=== PATIENT | female | born 1960 | race Two or more races ===

== ENCOUNTER 2025-05-24 16:30 | Inpatient (IN) | payer MEDICAID ==
[~2025-05-24] VITALS: Ht 157.5 cm; Wt 61.4 kg
--- NOTE | 2025-05-24 17:04 | ED.PDOC ---
GI ASSESSMENT HPI Comments 64 y/o F, with PMHx of DM and HTN presents to the ED for CC of nausea. Patient states, she has been experiencing symptoms of nausea with associated dizziness [id number]. Patient reports, dizziness to worsen while lying down and bending done. Patient denies vomiting, diarrhea, abdominal pain, ear pain, or ear-ringing. Vital signs were stable at arrival. Chief Complaint: Nausea/Vomiting Time Seen by MD: 16:50 Reviewed Notes: Nurses Notes, Medications, Allergies Allergies: Coded Allergies: NO KNOWN ALLERGIES (Unverified , 05/24/25) Information Source: Patient Mode of Arrival: Ambulatory Timing: Weeks Duration: Since onset Prehospital treatment: None Vomitus: None Stool: Normal Severity: Moderate Recent: None Recent Hx of: None Pain Location: None Modifying Factors: Nothing Associated sign and symptoms: Nausea, Vomiting Past Medical History PAST MEDICAL HISTORY: DM, HTN Surgical History: Denies all surgeries LAMP [employer] History: Denies all LAMP SH[employer]ER Hx Family History Family History: Unknown Social History Smoker: Non-Smoker Alcohol: Denies ETOH Use Drugs: Denies Drug Use Lives In: Home Constitutional: denies: chills, diaphoresis, fatigue, fever, malaise, sweats, weakness, others EENTM: denies: blurred vision, double vision, ear bleeding, ear discharge, ear drainage, ear pain, ear ringing, eye pain, eye redness, hearing loss, mouth pain, mouth swelling, nasal discharge, nose bleeding, nose congestion, nose pain, photophobia, tearing, throat pain, throat swelling, voice changes, others Respiratory: denies: cough, hemoptysis, orthopnea, SOB at rest, shortness of breath, SOB with excertion, stridor, wheezing, others Cardiovascular: denies: chest pain, dizzy spells, diaphoresis, Dyspnea on exertion, edema, irregular heart beat, left arm pain, lightheadedness, palpitations, PND, syncope, others Gastrointestinal: reports: nausea, vomiting; denies: abdomen distended, abdominal pain, blood streaked bowels, constipated, diarrhea, dysphagia, difficulty swallowing, hematemesis, melena, poor appetite, poor fluid intake, rectal bleeding, rectal pain, others Genitourinary: denies: abnormal vagina bleeding, burning, dyspareunia, dysuria, flank pain, frequency, hematuria, incontinence, pain, , vagina discharge, urgency, others Neurological: reports: dizziness; denies: fainting, headache, left sided numbness, left sided weakness, numbness, paresthesia, pre-existing deficit, right sided numbness, right sided weakness, seizure, speech problems, tingling, tremors, weakness, others Musculoskeletal: denies: back pain, gout, joint pain, joint swelling, muscle pain, muscle stiffness, neck pain, others Integumetry: denies: bruises, change in color, change in hair/nails, dryness, laceration, lesions, lumps, rash, wounds, others Allergic/Immunocompromised: denies: Difficulty Healing, Frequent Infections, Hives, Itching, others Hematologic/Lymphatic: denies: anemia, blood clots, easy bleeding, easy bruising, swollen glands, others Endocrine: denies: excessive hunger, excessive sweating, excessive thirst, excessive urination, flushing, intolerance to cold, intolerance to heat, unexplained weight gain, unexplained weight loss, others Psychiatric: denies: anxiety, bipolar disorder, depression, hopeless, panic disorder, schizophrenia, sleepless, suicidal, others All Other Systems: Reviewed and Negative Physical Exam General Appearance: Moderate Distress ([id number] distress due to dizziness and nausea concerns.), Normal HEENT: Head (Unremarkable cranial evaluation. No skull depressions or deformities. No signs of trauma.), Normal ENT Inspection, Pharynx Normal, TMs Normal Neck: Full Range of Motion, Non-Tender, Normal, Normal Inspection Respiratory: Chest Non-Tender, Lungs Clear, No Accessory Muscle Use, No Respiratory Distress, Normal Breath Sounds Cardiovascular: No Edema, No JVD, No Murmur, No Gallop, Normal Peripheral Pulses, Regular Rate/Rhythm Breast Exam: Deferred Gastrointestinal: No Organomegaly, Non Tender, No Pulsatile Mass, Normal Bowel Sounds, Soft Genitalia: Deferred Pelvic: Deferred Rectal: Deferred Extremities: No calf tenderness, Normal capillary refill, No pedal edema Neurologic: Alert Cerebellar Function: NOT DONE Reflexes: NOT DONE Skin: Dry, Normal Color, Warm Lymphatic: No Adenopathy Was a procedure done? Was a procedure done?: No GI differential Dx Differential Diagnosis: Dehydration, Diabetes/ DKA, Electrolyte Imbalance, Other (Sepsis, intracranial neoplasm, inner ear infection) X-Ray, Labs, Meds, VS Vital Signs Date Time Temp Pulse Resp B/P (MAP) Pulse Ox O2 Delivery O2 Flow Rate FiO2 05/24/25 16:32 97.0 70 16 119/72 98 97.0 Lab Test 05/24/25 17:12 Range/Units White Blood Count 9.4 4.4-10.8 10^3/uL Red Blood Count 4.67 4.0-5.20 10^6/uL Hemoglobin 14.1 12.2-16.2 g/dL Hematocrit 41.2 36.0-46.0 % Mean Corpuscular Volume 88.3 80.0-100.0 fL Mean Corpuscular Hemoglobin 30.2 28.0-32.0 pg Mean Corpuscular Hemoglobin Concent 34.2 32.0-36.0 g/dL Red Cell Distribution Width 13.9 11.8-14.3 % Platelet Count 237 140-450 10^3/uL Mean Platelet Volume 8.3 6.9-10.8 fL Neutrophils (%) (Auto) 68.6 37.0-80.0 % Lymphocytes (%) (Auto) 25.3 10.0-50.0 % Monocytes (%) (Auto) 4.8 0.0-12.0 % Eosinophils (%) (Auto) 0.6 0.0-7.0 % Basophils (%) (Auto) 0.7 0.0-2.0 % Neutrophils # (Auto) 6.4 1.6-8.6 10 ^3/uL Lymphocytes # (Auto) 2.4 0.4-5.4 10 ^3/uL Monocytes # (Auto) 0.5 0-1.3 10 ^3/uL Eosinophils # (Auto) 0.1 0-0.8 10 ^3/uL Basophils # (Auto) 0.1 0-0.2 10 ^3/uL Nucleated Red Blood Cells 0.0 % D-Dimer, Quantitative 0.45 0.0-0.49 mg/L FEU Sodium Level 141 136-145 mmol/L Potassium Level 4.7 3.5-5.1 mmol/L Chloride Level 104 98-107 mmol/L Carbon Dioxide Level 26 20-31 mmol/L Anion Gap 11 5-15 Blood Urea Nitrogen 29 H 9-23 mg/dL Creatinine 1.07 H 0.550-1.02 mg/dL Glomerular Filtration Rate Calc 58 >90 mL/min BUN/Creatinine Ratio 27.1 H 10.0-20.0 Serum Glucose 114 H 74-106 mg/dL Calcium Level 9.5 8.7-10.4 mg/dL Troponin I High Sensitivity < 3 L </=34 ng/L X-Ray, Labs, Meds, VS Comment All studies performed the ED were evaluated by me personally. Serum studies showed what appears to be in acute renal injury. Urine was pending at time of this note. CT of the head was unremarkable for any acute intracranial process. I discussed the renal concerns with the patient and she states that she has a history of renal injury. Patient will be admitted for nephrology consultation. Urinalysis will be reviewed once returned. If needed, antibiotic responsive will be provided. Time of 1ST Reevaluation: 20:22 Reevaluation 1ST: Improved Consultation: PCP, Other (Nephrology) Patient Education/Counseling: Diagnosis, Treatment Family Education/Counseling: Diagnosis, Treatment, No Family Present SEPSIS Sepsis Screen Date sepsis recognized/suspect: May 24, 2025 Time Sepsis recognized/suspect: 1634 Recent Procedure: No On Antibiotic Therapy: No Respiratory Rate >20: No Heart Rate >90: Yes Temp<36 C (96.8 F) or >38.3 C: No SBP <90 or MAP <65 mmHG: No New Acute Mental Status Change: No Is the patient on CPAP, BIPAP,: No Physician Orders Urinalysis (05/24/25 17:01) Electrocardigram (05/24/25 17:01) Head Without Contrast (05/24/25 17:01) Vital Signs Date Time Temp Pulse Resp B/P (MAP) Pulse Ox O2 Delivery O2 Flow Rate FiO2 05/24/25 16:32 97.0 70 16 119/72 98 97.0 Laboratory Tests Test 05/24/25 17:12 White Blood Count 9.4 10^3/uL (4.4-10.8) Departure 1 Departure Time of Disposition: 20:23 Impression: Primary Impression: Acute renal injury Disposition: ADMITTED INPATIENT Condition: Stable Discharged With: Self Critical Care Note Critical Care Time?: No Stability Stability form required: No Heart Score Heart Score: Heart Score Response (Comments) Value History N/A 0 EKG N/A 0 Age N/A 0 Risk Factors N/A 0 Troponin N/A 0 Total 0 I personally scribed for BJ,NEERAJ B PAC ([email or web address]) on 05/24/25 at 17:03. Electronically submitted by Rosana Navarrete ([email or web address]). NEERAJ LORENZO PAC May 24, 2025 17:03
[2025-05-24 17:35] LABS: Hematocrit 41.2 % (36.0-46.0); Hemoglobin 14.1 g/dL (12.2-16.2); Mean Corpuscular Hemoglobin 30.2 pg (28.0-32.0); Mean Corpuscular Volume 88.3 fL (80.0-100.0); Nucleated Red Blood Cells % 0.0 %
[2025-05-24 17:43] LABS: Chloride 104 mmol/L (98-107); Potassium 4.7 mmol/L (3.5-5.1); Sodium 141 mmol/L (136-145)
[2025-05-24 17:44] LABS: Anion Gap 11 (5-15); Carbon Dioxide 26 mmol/L (20-31)
[2025-05-24 17:45] LABS: Calcium 9.5 mg/dL (8.7-10.4)
[2025-05-24 17:49] LABS: BUN/Creatinine Ratio 27.1 (10.0-20.0)
[2025-05-24 17:54] LABS: Blood Urea Nitrogen 29 mg/dL (9-23); Glucose 114 mg/dL (74-106)
--- NOTE | 2025-05-24 18:25 | DVH ---
CT HEAD WITHOUT CONTRAST Indication: Dizziness EXAM DATE: 05/24/2025 05:47 PM COMPARISON: None TECHNIQUE: CT of the head without intravenous contrast. RADIATION DOSE: CTDIvol: 51.14 mGy, DLP: 906 mGy*cm FINDINGS: There is no intracranial hemorrhage. There is no extra-axial fluid, mass, mass effect or midline shif t. The ventricles are midline and normal in size. Basilar cisterns are patent. There are mild periven tricular and subcortical white matter chronic microvascular ischemic changes. Mild global cerebral vo lume loss The mastoids are well pneumatized. Right maxillary sinus mucosal retention cyst/ polyp measuring 1.7 cm.. Imaged portion of the orbits are unremarkable. IMPRESSION: No intracranial hemorrhage or mass effect. Mild chronic microvascular ischemic changes.
[2025-05-24] MEDS: ONDANSETRON ODT 4 MG TAB PO ONE (20:48)
[2025-05-24] MEDS: MECLIZINE HCL 25 MG TAB PO ONE (20:48)
[2025-05-24 21:39] LABS: Urine Protein, UAD Negative (Negative)
--- NOTE | 2025-05-24 21:48 | DVHHPRES ---
History of Present Illness Resident Creating Document: GEOVANY WASHINGTON RESIDENT History of Present Illness This is a 64-year-old female with past medical history of hypertension, diabetes mellitus type 2, GERD, presented to the ER with chief complain of dizziness and nausea since last 2 weeks. She reports constant dizziness, aggravated on lying down, standing up or leaning forward, associated with nausea. Patient denies vomiting, fever, chills, chest pain or headaches. She was receiving only half the dose of her blood pressure medications, due to inability to read instruction s in [place]. She recently discontinue Jardiance due to dysuria and perineal itching. PMHx: Hypertension, diabetes mellitus type 2, GERD PSHx: Hysterectomy due to cervical cancer, appendectomy, 2 sections Family history: CA in mother, stroke in father Social history: Denies smoking, alcohol, drug use. Lives in house with family, code- DNR DNI, next to kin is son Home medication: Glipizide, metformin, lisinopril Allergic history: Jardiance Patient was examined at bedside today. Patient admitted for further management. Review of Systems Review of Systems ROS: Constitutional: Denies weight loss, fever and chills. HEENT: Denies changes in vision and hearing. Respiratory: Denies shortness of breath and cough Cardiovascular: Denies chest discomfort or palpitations GI: Nausea. Denies abdominal pain, vomiting and diarrhea. : Denies dysuria and urinary frequency. Musculoskeletal: Denies myalgias and joint pain Skin: Denies rash and pruritus. Neurological: Dizziness, denies headache, vision or hearing problems Allergies: Coded Allergies: NO KNOWN ALLERGIES (Unverified , 05/24/25) Exam Vital Signs Vital Signs Date Time Temp Pulse Resp B/P (MAP) Pulse Ox O2 Delivery O2 Flow Rate FiO2 05/24/25 21:17 97.7 70 12 204/111 (142) 96 97.7 Exam General: Patient alert and oriented in person, place and time. Patient following commands. HEENT: Normocephalic, atraumatic, dry mucous membranes Respiratory/pulmonary: Clear lungs bilaterally, vesicular murmurs present in almost all lung [place], no associated crackles or wheezes. Cardiovascular: Normal heart sounds S1 and S2 with no associated murmurs Abdomen: Abdomen nondistended, there is no pain to palpation in any of the abdominal quadrants, no palpable masses. Extremities: Varicose veins; There is no peripheral edema present at the lower extremities. Peripheral Pulses: 3+ Radial (R). 3+ Radial (L). 3+ Dorsalis pedis (R). 3+ Dorsalis pedis(L) Skin: No rashes or pruritus, there is no sacral edema present at this time. Neurological: Intact cranial nerves with no focal neurologic deficits Labs/Xrays Labs Test 05/24/25 20:01 05/24/25 17:12 Range/Units Urine Color Light-yellow Yellow Urine Clarity Clear Clear Urine pH 6.0 5.0-9.0 Urine Specific [place] 1.020 1.001-1.035 Urine Protein Negative Negative Urine Ketones Negative Negative Urine Blood Negative Negative /uL Urine Nitrite Negative Negative Urine Bilirubin Negative Negative Urine Urobilinogen Normal Negative mg/dL Urine Leukocyte Esterase Negative Negative /uL Urine RBC None seen 0 - 4 /hpf Urine Microscopic WBC 1 0-5 /HPF Urine Squamous Epithelial Cells Few <5 /hpf Urine Bacteria None seen None Seen /hpf Urine Glucose Normal Normal mg/dL White Blood Count 9.4 4.4-10.8 10^3/uL Red Blood Count 4.67 4.0-5.20 10^6/uL Hemoglobin 14.1 12.2-16.2 g/dL Hematocrit 41.2 36.0-46.0 % Mean Corpuscular Volume 88.3 80.0-100.0 fL Mean Corpuscular Hemoglobin 30.2 28.0-32.0 pg Mean Corpuscular Hemoglobin Concent 34.2 32.0-36.0 g/dL Red Cell Distribution Width 13.9 11.8-14.3 % Platelet Count 237 140-450 10^3/uL Mean Platelet Volume 8.3 6.9-10.8 fL Neutrophils (%) (Auto) 68.6 37.0-80.0 % Lymphocytes (%) (Auto) 25.3 10.0-50.0 % Monocytes (%) (Auto) 4.8 0.0-12.0 % Eosinophils (%) (Auto) 0.6 0.0-7.0 % Basophils (%) (Auto) 0.7 0.0-2.0 % Neutrophils # (Auto) 6.4 1.6-8.6 10 ^3/uL Lymphocytes # (Auto) 2.4 0.4-5.4 10 ^3/uL Monocytes # (Auto) 0.5 0-1.3 10 ^3/uL Eosinophils # (Auto) 0.1 0-0.8 10 ^3/uL Basophils # (Auto) 0.1 0-0.2 10 ^3/uL Nucleated Red Blood Cells 0.0 % D-Dimer, Quantitative 0.45 0.0-0.49 mg/L FEU Sodium Level 141 136-145 mmol/L Potassium Level 4.7 3.5-5.1 mmol/L Chloride Level 104 98-107 mmol/L Carbon Dioxide Level 26 20-31 mmol/L Anion Gap 11 5-15 Blood Urea Nitrogen 29 H 9-23 mg/dL Creatinine 1.07 H 0.550-1.02 mg/dL Glomerular Filtration Rate Calc 58 >90 mL/min BUN/Creatinine Ratio 27.1 H 10.0-20.0 Serum Glucose 114 H 74-106 mg/dL Calcium Level 9.5 8.7-10.4 mg/dL Troponin I High Sensitivity < 3 L </=34 ng/L SEPSIS Sepsis Screen Date sepsis recognized/suspect: May 24, 2025 Time Sepsis recognized/suspect: 1634 Recent Procedure: No On Antibiotic Therapy: No Respiratory Rate >20: No Heart Rate >90: Yes Temp<36 C (96.8 F) or >38.3 C: No SBP <90 or MAP <65 mmHG: No New Acute Mental Status Change: No Is the patient on CPAP, BIPAP,: No Physician Orders Electrocardigram (05/24/25 17:01) Head Without Contrast (05/24/25 17:01) Vital Signs Date Time Temp Pulse Resp B/P (MAP) Pulse Ox O2 Delivery O2 Flow Rate FiO2 05/24/25 21:17 97.7 70 12 204/111 (142) 96 97.7 05/24/25 16:32 97.0 70 16 119/72 98 97.0 Laboratory Tests Test 05/24/25 17:12 White Blood Count 9.4 10^3/uL (4.4-10.8) Medications Medications Dose Ordered Sig/Makenzie Route Start Time Stop Time Status Last Admin Dose Admin Meclizine HCl 25 mg ONCE ONCE PO 05/24/25 17:15 05/24/25 17:16 DC 05/24/25 20:48 25 MG Ondansetron HCl 4 mg ONCE ONCE PO 05/24/25 17:15 05/24/25 17:16 DC 05/24/25 20:48 4 MG Assessment/Plan Assessment/Plan Hypertensive crisis, resolving Essential hypertension CHRISTIANA hemodynamically mediated (VMN) Continue home medication lisinopril 20 mg HS Continue blood pressure, BMP monitoring Renal ultrasound ordered Presyncope, rule out cardiac etiology Monitor on telemetry for life-threatening arrhythmias Echocardiogram, carotid ultrasound ordered Completed head CT which showed no acute intracranial pathology Diabetes mellitus type 2 Started on sliding scale insulin A1c 7.2 Monitor blood glucose Diabetes education Diabetic diet GERD without alarm features Start Protonix 40mg q.d. for 8 weeks Hyperlipidemia Metabolic syndrome ASCVD 20%; Moderate to high dose Statin indicated. Started on atorvastatin 40 mg daily CHRISTIANA due to VMN Continue IV fluids Monitor BMP DIET: Cardiac DVT PROPHYLAXIS: Lovenox GI PROPHYLAXIS: Protonix CODE STATUS: Goals of care discussed with patient at bedside for more than 37 minutes. DNR DNI DISPOSITION: Telemetry Patient's status and plan discussed with the patient. Case discussed with Dr. Thapa Plan discussed with: Patient, Other (Nurses) Date of Service: May 24, 2025 Billing Provider: VIDAL THAPA MD Common Visit Codes: 67918-[id number] INP/OBS CARE (HIGH) Secondary Visit Codes: [id number]-[id number] CARE PLAN 30 MINUTES GEOVANY WASHINGTON RESIDENT May 24, 2025 21:48 DREW HOWARD RESIDENT May 25, 2025 08:34
[2025-05-24 22:13] LABS: INR 0.98 (0.9-1.15); Partial Thromboplastin Time 28.6 SEC (24.5-34.5); Prothrombin Time 10.4 sec (9.3-11.8)
[2025-05-24 22:15] LABS: Alanine Aminotransferase 14 U/L (7-40); Albumin 4.4 g/dL (3.2-4.8); Alkaline Phosphatase 88 U/L (46-116); Bilirubin, Total 0.3 mg/dL (0.2-1.0); HDL Cholesterol 48 mg/dL (40-59); Magnesium 1.9 mg/dL (1.6-2.6); Total Protein 8.0 g/dL (5.7-8.2)
[2025-05-24 22:19] LABS: Bilirubin, Direct < 0.1 mg/dL (<0.3); Cholesterol 252 mg/dL (< 200); Triglycerides 549 mg/dL (< 150)
[2025-05-24 22:30] LABS: Lipase 49 U/L (12-53)
[2025-05-24] MEDS ORDERED: MORPHINE SULFATE INJ 2 MG/ml SYRG IV PRN (23:45)
[2025-05-24] MEDS ORDERED: ONDANSETRON HCL 4 MG/2 ML VIAL IV PRN (23:45)
[2025-05-25] VITALS (7 sets, daily range): BP systolic 125–150; BP diastolic 58–69; PULSE 65–73; RESP 13–20; TEMP 97.4–98.4; O2SAT 95–96
[2025-05-25] MEDS ORDERED: DEXTROSE (50%) 50ML SYRG IV PRN
[2025-05-25 00:14] LABS: Amphetamine Screen, Urine Neg (NEGATIVE)
[2025-05-25 00:15] LABS: Barbiturate Scree,Urine Neg (NEGATIVE); Benzodiazephine Screen, Urine Neg (NEGATIVE); Cocaine Screen, Urine Neg (NEGATIVE)
[2025-05-25 00:16] LABS: Cannabinoid Screen, Urine Neg (NEGATIVE); Opiate Scree,Urine Neg (NEGATIVE); Phencyclidine Screen, Urine Neg (NEGATIVE)
[2025-05-25] MEDS: InsuLIN REG 1unit/0.01ml Soln (100units/ml) SC ONE (00:24)
[2025-05-25] MEDS: ACCU-CHEK COMFORT CURVE STRIP VI ONE (00:24)
[2025-05-25] MEDS: DEXTROSE (50%) 50ML SYRG IV ONE (00:25)
[2025-05-25] MEDS: ENOXAPARIN SOD 40 MG/0.4 ML SYRINGE SC SCH (00:27)
--- NOTE | 2025-05-25 02:57 | DVH ---
INDICATION: CHRISTIANA TECHNIQUE: Multiple real-time sonographic images of the kidneys and bladder were obtained. COMPARISON: None FINDINGS: RIGHT kidney measures 9.9 cm in length with normal parenchymal echotexture and cortical thickness. No evidence of nephrolithiasis or hydronephrosis. LEFT kidney measures 9.1 cm in length with normal parenchymal echotexture and cortical thickness. Evidence of nephrolithiasis or hydronephrosis. No large intraluminal masses are seen in the bladder. Moderately distended. No significant postvoid residual. IMPRESSION: Unremarkable renal ultrasound.
[2025-05-25 06:02] LABS: Alanine Aminotransferase 17 U/L (7-40); Albumin 4.0 g/dL (3.2-4.8); Alkaline Phosphatase 75 U/L (46-116); Anion Gap 11 (5-15); BUN/Creatinine Ratio 26.8 (10.0-20.0); Blood Urea Nitrogen 22 mg/dL (9-23); Calcium 9.0 mg/dL (8.7-10.4); Carbon Dioxide 28 mmol/L (20-31); Chloride 103 mmol/L (98-107); Potassium 3.8 mmol/L (3.5-5.1); Sodium 142 mmol/L (136-145); Total Protein 7.1 g/dL (5.7-8.2)
[2025-05-25 06:03] LABS: Bilirubin, Total 0.5 mg/dL (0.2-1.0)
[2025-05-25 06:05] LABS: Free T4 (Free Thyroxine) 1.34 ng/dL (0.89-1.76)
[2025-05-25 06:12] LABS: Hematocrit 39.0 % (36.0-46.0); Hemoglobin 13.0 g/dL (12.2-16.2); Mean Corpuscular Hemoglobin 29.3 pg (28.0-32.0); Mean Corpuscular Volume 87.9 fL (80.0-100.0); Nucleated Red Blood Cells % 0.1 %
[2025-05-25 06:15] LABS: Glucose 192 mg/dL (74-106)
[2025-05-25] MEDS: PANTOPRAZOLE 40 MG TAB PO SCH (06:54)
[2025-05-25] MEDS: InsuLIN REG 1unit/0.01ml Soln (100units/ml) SC SCH (07:00)
--- NOTE | 2025-05-25 07:56 | DVH ---
Carotid Duplex Date: 05/25/2025 07:03 AM Clinical History: Presyncope Comparison: None Technique: Duplex Doppler evaluation of the extracranial carotid and vertebral arteries including col or Doppler and spectral/pulsed waveform analysis was performed. Findings: Velocities and ratios within normal limits. IMPRESSION: No hemodynamically significant stenosis noted in the right carotid system. No hemodynamically significant stenosis noted in the left carotid system. Reference: Radiology 2003; [id number]
[2025-05-25] MEDS: ACCU-CHEK COMFORT CURVE STRIP VI SCH (09:36)
[2025-05-25] MEDS: LISINOPRIL 20 MG TAB PO ONE (10:38)
[2025-05-25] MEDS ORDERED: LISI20TA56 PO (12:17)
[2025-05-25] MEDS ORDERED: METF-372 PO (12:18)
[2025-05-25] MEDS ORDERED: GLIP5TAB21 PO (12:19)
--- NOTE | 2025-05-25 16:17 | DVHDSRES ---
Discharge Summary Date of Admission Resident Creating Document: SEEMA ECHOLS May 24, 2025 at 23:43 Date of Discharge: May 25, 2025 Admitting Diagnosis Presyncope due to hypertensive urgency Labs/Diagnostic Data: Laboratory Results Test 05/25/25 11:38 05/25/25 04:40 05/24/25 20:01 05/24/25 17:12 POC Glucose 155 mg/dl (70-106) White Blood Count 7.4 10^3/uL (4.4-10.8) Red Blood Count 4.44 10^6/uL (4.0-5.20) Hemoglobin 13.0 g/dL (12.2-16.2) Hematocrit 39.0 % (36.0-46.0) Mean Corpuscular Volume 87.9 fL (80.0-100.0) Mean Corpuscular Hemoglobin 29.3 pg (28.0-32.0) Mean Corpuscular Hemoglobin Concent 33.3 g/dL (32.0-36.0) Red Cell Distribution Width 13.6 % (11.8-14.3) Platelet Count 213 10^3/uL (140-450) Mean Platelet Volume 8.5 fL (6.9-10.8) Neutrophils (%) (Auto) 58.6 % (37.0-80.0) Lymphocytes (%) (Auto) 34.9 % (10.0-50.0) Monocytes (%) (Auto) 4.7 % (0.0-12.0) Eosinophils (%) (Auto) 1.3 % (0.0-7.0) Basophils (%) (Auto) 0.5 % (0.0-2.0) Neutrophils # (Auto) 4.3 10 ^3/uL (1.6-8.6) Lymphocytes # (Auto) 2.6 10 ^3/uL (0.4-5.4) Monocytes # (Auto) 0.3 10 ^3/uL (0-1.3) Eosinophils # (Auto) 0.1 10 ^3/uL (0-0.8) Basophils # (Auto) 0 10 ^3/uL (0-0.2) Nucleated Red Blood Cells 0.1 % Sodium Level 142 mmol/L (136-145) Potassium Level 3.8 mmol/L (3.5-5.1) Chloride Level 103 mmol/L (98-107) Carbon Dioxide Level 28 mmol/L (20-31) Anion Gap 11 (5-15) Blood Urea Nitrogen 22 mg/dL (9-23) Creatinine 0.82 mg/dL (0.550-1.02) Glomerular Filtration Rate Calc 80 mL/min (>90) BUN/Creatinine Ratio 26.8 (10.0-20.0) Serum Glucose 192 mg/dL (74-106) Calcium Level 9.0 mg/dL (8.7-10.4) Total Bilirubin 0.5 mg/dL (0.2-1.0) Aspartate Amino Transferase (AST) 15 U/L (13-40) Alanine Aminotransferase (ALT) 17 U/L (7-40) Alkaline Phosphatase 75 U/L (46-116) Total Protein 7.1 g/dL (5.7-8.2) Albumin 4.0 g/dL (3.2-4.8) Triglycerides Level 231 mg/dL (< 150) Free Thyroxine (T4) Calculated 1.34 ng/dL (0.89-1.76) Total Triiodothyronine (TT3) 1.00 ng/mL (0.60-1.81) Urine Color Light-yellow (Yellow) Urine Clarity Clear (Clear) Urine pH 6.0 (5.0-9.0) Urine Specific [place] 1.020 (1.001-1.035) Urine Protein Negative (Negative) Urine Ketones Negative (Negative) Urine Blood Negative /uL (Negative) Urine Nitrite Negative (Negative) Urine Bilirubin Negative (Negative) Urine Urobilinogen Normal mg/dL (Negative) Urine Leukocyte Esterase Negative /uL (Negative) Urine RBC None seen /hpf (0 - 4) Urine Microscopic WBC 1 /HPF (0-5) Urine Squamous Epithelial Cells Few /hpf (<5) Urine Bacteria None seen /hpf (None Seen) Urine Osmolality 756 mOsm/kg Urine Glucose Normal mg/dL (Normal) Urine Opiates Screen Neg (NEGATIVE) Urine Fentanyl Screen Neg (NEGATIVE) Urine Barbiturates Screen Neg (NEGATIVE) Urine Phencyclidine Screen Neg (NEGATIVE) Urine Amphetamines Screen Neg (NEGATIVE) Urine Benzodiazepines Screen Neg (NEGATIVE) Urine Cocaine Screen Neg (NEGATIVE) Urine Cannabinoids Screen Neg (NEGATIVE) Prothrombin Time 10.4 sec (9.3-11.8) Prothrombin Time INR 0.98 (0.9-1.15) Activated Partial Thromboplast Time 28.6 SEC (24.5-34.5) D-Dimer, Quantitative 0.45 mg/L FEU (0.0-0.49) Hemoglobin A1c 7.2 % A1C (<5.7) Phosphorus Level 3.3 mg/dL (2.4-5.1) Magnesium Level 1.9 mg/dL (1.6-2.6) Direct Bilirubin < 0.1 mg/dL (<0.3) Troponin I High Sensitivity < 3 ng/L (</=34) C-Reactive Protein High Sensitivity 0.65 mg/dL (<1.0) Cholesterol Level 252 mg/dL (< 200) LDL Cholesterol mg/dL (< 100) HDL Cholesterol 48 mg/dL (40-59) Lipase 49 U/L (12-53) Vitamin D 25-Hydroxy 25.5 ng/mL (30.0-100) Thyroid Stimulating Hormone (TSH) 0.52 uIU/mL (0.55-4.78) Other Laboratory Tests 05/25/25 04:40 Brief Hx & Hospital Course: HPI This is a 64-year-old female with past medical history of hypertension, diabetes mellitus type 2, GERD, presented to the ER with chief complain of dizziness and nausea since last 2 weeks. She reports constant dizziness, aggravated on lying down, standing up or leaning forward, associated with nausea. Patient denies vomiting, fever, chills, chest pain or headaches. She was receiving only half the dose of her blood pressure medications, due to inability to read instructions in [place]. She recently discontinue Jardiance due to dysuria and perineal itching. PMHx: Hypertension, diabetes mellitus type 2, GERD PSHx: Hysterectomy due to cervical cancer, appendectomy, 2 sections Family history: ME in mother, stroke in father Social history: Denies smoking, alcohol, drug use. Lives in house with family, code- DNR DNI, next to kin is son Home medication: Glipizide, metformin, lisinopril Allergic history: Jardiance Brief course On further evaluation her pre-syncope was attributed to hypertensive urgency. It was managed with clonidine in the ER and home medication lisinopril. Heead CT was negative. Carotid ultrasond revealed no significant stenosis. Renal ultrasound was unremarkable. CHRISTIANA due to VMN was managed with IV fluids. Atorvastatin was started based on high ASCVD score. Diabetes managed with insulin sliding scale. The patient was discharged with advice to continue home medications and follow up with PCP and discharge clinic. Patient was hemodynamically stable, verbalized understanding of discharge plan. Exam General: Patient alert and oriented in person, place and time. Patient following commands. HEENT: Normocephalic, atraumatic, dry mucous membranes Respiratory/pulmonary: Clear lungs bilaterally, vesicular murmurs present in almost all lung [place] ri[place], no associated crackles or wheezes. Cardiovascular: Normal heart sounds S1 and S2 with no associated murmurs Abdomen: Abdomen nondistended, there is no pain to palpation in any of the abdominal quadrants, no palpable masses. Extremities: Varicose veins; There is no peripheral edema present at the lower extremities. Peripheral Pulses: 3+ Radial (R). 3+ Radial (L). 3+ Dorsalis pedis (R). 3+ Dorsalis pedis(L) Skin: No rashes or pruritus, there is no sacral edema present at this time. Neurological: Intact cranial nerves with no focal neurologic deficits Operations or Procedures PATIENT: LORNE THOMPSON ACCT: [id number] UNIT: [id number] : 1960 LOC: OVERFLOW ROOM / BED: [address] [place] [address] AGE / SEX: 64 / F ADM STATUS: ADM IN SERVICE 0150 ORDERING PHYSICIAN: DREW HOWARD RESIDENT PROCEDURE(s): CARCL - CAROTID DUPLX W COLOR DOP REASON: Presyncope ORDER NUMBER(s): [id number], ACCESSION NUMBER(s): [id number] Carotid Duplex Date: 05/25/2025 07:03 AM Clinical History: Presyncope Comparison: None Technique: Duplex Doppler evaluation of the extracranial carotid and vertebral arteries including color Doppler and spectral/pulsed waveform analysis was performed. Findings: Velocities and ratios within normal limits. IMPRESSION: No hemodynamically significant stenosis noted in the right carotid system. No hemodynamically significant stenosis noted in the left carotid system. Reference: Radiology 2003; [id number] PATIENT: LORNE THOMPSON ACCT: [id number] UNIT: [id number] : 1960 LOC: OVERFLOW ROOM / BED: 1030-ERT / A AGE / SEX: 64 / F ADM STATUS: ADM IN SERVICE 0022 ORDERING PHYSICIAN: GEOVANY WASHINGTON PROCEDURE(s): KIDUS - KIDNEY REASON: CHRISTIANA ORDER NUMBER(s): [id number], ACCESSION NUMBER(s): [id number] INDICATION: CHRISTIANA TECHNIQUE: Multiple real-time sonographic images of the kidneys and bladder were obtained. COMPARISON: None FINDINGS: RIGHT kidney measures 9.9 cm in length with normal parenchymal echotexture and cortical thickness. No evidence of nephrolithiasis or hydronephrosis. LEFT kidney measures 9.1 cm in length with normal parenchymal echotexture and cortical thickness. Evidence of nephrolithiasis or hydronephrosis. No large intraluminal masses are seen in the bladder. Moderately distended. No significant postvoid residual. IMPRESSION: Unremarkable renal ultrasound. PATIENT: LORNE THOMPSON ACCT: [id number] UNIT: [id number] : 1960 LOC: ER ROOM / BED: / AGE / SEX: 64 / F ADM STATUS: REG ER SERVICE 1701 ORDERING PHYSICIAN: NEERAJ LORENZO PROCEDURE(s): HWOCT - HEAD WITHOUT CONTRAST REASON: Dizziness ORDER NUMBER(s): [id number], ACCESSION NUMBER(s): [id number] CT HEAD WITHOUT CONTRAST Indication: Dizziness EXAM DATE: 05/24/2025 05:47 PM COMPARISON: None TECHNIQUE: CT of the head without intravenous contrast. RADIATION DOSE: CTDIvol: 51.14 mGy, DLP: 906 mGy*cm FINDINGS: There is no intracranial hemorrhage. There is no extra-axial fluid, mass, mass effect or midline shift. The ventricles are midline and normal in size. Basilar cisterns are patent. There are mild periventricular and subcortical white matter chronic microvascular ischemic changes. Mild global cerebral volume loss The mastoids are well pneumatized. Right maxillary sinus mucosal retention cyst/ polyp measuring 1.7 cm.. Imaged portion of the orbits are unremarkable. IMPRESSION: No intracranial hemorrhage or mass effect. Mild chronic microvascular ischemic changes. PATIENT: LORNE THOMPSON ACCT: [id number] UNIT: [id number] : 1960 LOC: OVERFLOW ROOM / BED: 1030-ERT / A AGE / SEX: 64 / F ADM STATUS: ADM IN SERVICE 0022 ORDERING PHYSICIAN: GEOVANY WASHINGTON PROCEDURE(s): KIDUS - KIDNEY REASON: CHRISTIANA ORDER NUMBER(s): [id number], ACCESSION NUMBER(s): [id number] INDICATION: CHRISTIANA TECHNIQUE: Multiple real-time sonographic images of the kidneys and bladder were obtained. COMPARISON: None FINDINGS: RIGHT kidney measures 9.9 cm in length with normal parenchymal echotexture and cortical thickness. No evidence of nephrolithiasis or hydronephrosis. LEFT kidney measures 9.1 cm in length with normal parenchymal echotexture and cortical thickness. Evidence of nephrolithiasis or hydronephrosis. No large intraluminal masses are seen in the bladder. Moderately distended. No significant postvoid residual. IMPRESSION: Unremarkable renal ultrasound. Condition at Discharge: Stable Final Diagnosis/Problems List Presyncope due to hypertensive urgency Hypertensive crisis, resolving Essential hypertension CHRISTIANA hemodynamically mediated (VMN) Presyncope, ruled out cardiac etiology Diabetes mellitus type 2 GERD without alarm features Hyperlipidemia Metabolic syndrome CHRISTIANA due to VMN Discharge Disposition: Home Discharge Instruct/Medications Diet: Consistent carbohydrate Activity: No Restrictions, As Tolerated Follow Up/Referral: Follow up with PCP in [place] clinic in 1 week Medications: As per EMR Scheduled Glipizide (Glipizide), 1 TAB PO BID, (Reported) Lisinopril (Lisinopril), 1 TAB PO DAILY, (Reported) Metformin Hydrochloride (Metformin Hcl), 1 TAB PO BID, (Reported) Discharge Statement: "Patient was advised to return to the ER or call 911 if any headaches, dizziness, shortness of breath, chest pain, abdominal pain, bleeding, fevers, or worsening of medical condition. Patient was counseled about treatment plan, medications, possible side effects, patientverbalized understanding. All questions were answered to the best of my ability. This discharge took greater then 30 minutes in planning, reviewing documentation, counseling the patient, and discussing with other team members." ASSESSMENT ASSESSMENT Assessment Presyncope due to hypertensive urgency Date of Service: May 25, 2025 Billing Provider: OLEG CASTRO MD Common Visit Codes: 47576-XOV/OBS DISCH DAY >30min SEEMA ECHOLS May 25, 2025 16:17 OLEG CASTRO MD May 26, 2025 08:21
[2025-05-25] MEDS ORDERED: ENOXAPARIN SOD 40 MG/0.4 ML SYRINGE SC SCH (21:00)
[2025-05-25] MEDS ORDERED: LISINOPRIL 20 MG TAB PO SCH (21:00)
[2025-05-25] MEDS ORDERED: ATORVASTATIN 20 MG TAB PO SCH (22:00)
--- NOTE | 2025-05-26 00:26 | DVHSR ---
APPROVED REPORT EXAM: Two-dimensional and M-mode echocardiogram with Doppler and color Doppler. Blood Pressure: 125/61 mmHg INDICATION Pre syncope RISK FACTORS Height: 62, Weight: 135 DIMENSIONS LVDd4.4 (3.8-5.7cm)LA (2D)3.4 (1.9-4.0cm)Aortic Root (2.0-3.7cm) LVDs3.0 (2.5-4.0cm)LA (MM) (1.9-4.0cm)Aortic Cusp Exc (1.5-2.0cm) EF (%) 58.0 (55-70%)Rt. Atrium4.5 (1.9-4.0cm)Asc. Aorta cm Mitral Valve MitralMitral Stenosis E wave0.79m/sMV Mean GR.mmHg A wave0.95m/sMV Peak GR.mmHg E/A ratio0.82D MVAcm2 DECEL [id number] 1/2 [id number] IVRTmsDop MVA3.78cm2 Aortic Valve Aortic ValveAortic Stenosis V10.99m/Osiris Mean GR.4mmHg V21.48m/Osiris Peak GR.9mmHg Pulmonic Valve V20.74m/s Tricuspid Valve TR Velocity2.94m/s [id number] Other Information Technically limited study due to body habitus. Conclusion LV EF IS 65% NORMAL VALVES NO EFFUSION NORMAL RV FUNCTION MILD PULMONARY HYPERTENSION RVSP IS 39 MM OF HG AND IS HIGH
== END 2025-05-25 15:45 | disposition home or self-care (01) | DRG 199 ==
LOC: ER 16:30 → OVERFLOW 23:43
PROVIDERS: ADMIT Internal Medicine; ATTEND Internal Medicine
DX: I16.0 Hypertensive urgency (principal); N17.0 Acute kidney failure with tubular necrosis; K21.9 Gastro-esophageal reflux disease without esophagitis; E78.5 Hyperlipidemia, unspecified; E88.810 Metabolic syndrome; E11.9 Type 2 diabetes mellitus without complications; I25.10 Atherosclerotic heart disease of native coronary artery without angina pectoris; Z82.49 Family history of ischemic heart disease and other diseases of the circulatory system; Z82.3 Family history of stroke; Z79.899 Other long term (current) drug therapy
CPT/HCPCS: 36415; 70450; 76775; 80048; 80053; 80061; 80076; 80307; 81001; 82088; 82306; 82607; 82962; 83036; 83690; 83735; 83935; 84100; 84244; 84439; 84443; 84478; 84480; 84484; 85025; 85379; 85610; 85730; 86141; 93306; 93886; G0378; J1815; Q0162